=== PATIENT | male | born 1965 | race Caucasian/White ===

== ENCOUNTER 2016-06-16 17:27 | Emergency (ER) | payer OTHER ==
--- NOTE | 2016-06-16 19:30 | EDDOCDS ---
Nurse's Notes [facility] Name: Hong Aburto Age: 51 yrs Sex: Male : 1965 Arrival Date: 06/16/2016 Time: 17:27 Bed I2 / M2 Private MD: NO PRIMARY PHYSICIAN, . Diagnosis: Strain of unspecified muscles, fascia and tendons at thigh level, left thigh;Contusion of left lower leg Presentation: 06/16 17:35 Presenting complaint: Patient states: was snow mobiling and started going to in to a [facility], sled rolled over and tried to save sled from sliding more- legs split apart. upper left thigh pain and pain under scrotum. pt was ambulatory at scene. Adult Sepsis Screening: The patient does not have new or worsening altered mentation. Patient's respiratory rate is less than 22. Systolic blood pressure is greater than 100. Patient has a qSOFA score of 0- Negative Sepsis Screen. Suicide/Homicide risk assessment- the patient denies having any suicidal and/or homicidal ideations and does not present with any other emotional, behavioral or mental health complaints. Status: Patient is not a manager services or dependent. Transition of care: patient was not received from another setting of care. 17:35 Acuity: RENEE Level 3 [facility] 17:35 Method Of Arrival: Ambulance [facility] 17:35 Presenting complaint: Patient states: pt states he cant lift his left leg. pain on srm palpation to upper thigh. Triage Assessment: 17:41 General: Appears in no apparent distress, Behavior is appropriate for age, cooperative. srm Pain: Pain currently is 5 out of 10 on a pain scale. At worst was 10 out of 10 on a pain scale. Musculoskeletal: Reports left thigh/groin pain. cant lift left leg. 17:41 Pt Declines HIV testing. srm Historical: - Allergies: no known allergies; - Home Meds: 1. none - PMHx: none; - PSHx: Hernia repair; - Social history: Smoking status: No barriers to communication noted, The patient speaks fluent Turkish, Speaks appropriately for age, Smoking status: Patient uses tobacco products, current every day smoker. - Family history: Not pertinent. - : The pt / caregiver states he / she is not on anticoagulants. Home medication list is obtained from the patient. - Exposure Risk Screening:: None identified. Screenin:27 Screening information is obtained from the patient. Fall risk: No risks identified. dsf Assistance ADL's: requires no assistance with activities of daily living. Abuse/DV Screen: The patient / caregiver reports he/she is: not in a situation that causes fear, pain or injury. Nutritional screening: No deficits noted. Advance Directives: Currently, there is no health care proxy. home support is adequate. Assessment: 19:27 Adult Sepsis Screening: The patient does not have new or worsening altered mentation. dsf Patient's respiratory rate is less than 22. Systolic blood pressure is greater than 100. Patient has a qSOFA score of 0- Negative Sepsis Screen. General: Appears in no apparent distress, Behavior is appropriate for age, cooperative. Pain: Location: left quadriceps Pain currently is 5 out of 10 on a pain scale. Neurological: Level of Consciousness is awake, alert. Cardiovascular: Capillary refill < 3 seconds. Respiratory: Airway is patent Respiratory effort is even, unlabored, Respiratory pattern is regular, symmetrical. Derm: Skin is pink, warm & dry. Musculoskeletal: Circulation, motion, and sensation intact. Vital Signs: 17:30 BP 147 / 83; Pulse 78; Resp 18 S; Temp 97.8(O); Pulse Ox 97% on R/A; Weight 108.86 kg gr2 (R); Height 6 ft. 0 in. (182.88 cm) (R); Pain 8/10; 19:26 BP 158 / 74; Pulse 98; Resp 18; Temp 98.3(O); Pulse Ox 97% on R/A; Pain 5/10; rn1 17:30 Body Mass Index 32.55 (108.86 kg, 182.88 cm) gr2 Vitals: 17:30 Log In Time: June 16, 2016 at 17:30. gr2 ED Course: 17:29 Patient visited by Beatrice Yarbrough. gr2 17:29 NO PRIMARY PHYSICIAN, . is Private Physician. gr2 17:29 Patient moved to Waiting gr2 17:33 Patient visited by Beatrice Yarbrough. gr2 17:33 Patient moved to Pre RCE gr2 17:38 Triage Initiated srm 18:34 Patient moved to Triage 2 srm 18:35 Jass Martinez [facility] ar2 18:36 Andie Peralta MD is Attending Physician. ar2 18:36 Patient visited by Jass Martinez PA-C. ar2 18:38 Patient moved to I2 / M2 [facility] 19:27 The patient / caregiver is instructed regarding the plan of care and ED course. dsf 19:27 No IV's were initiated during this patient's visit. No procedures done that require dsf assistance. Petar wrap to left thigh. +CSM Crutch training done. Order Results: There are currently no results for this order. Outcome: 18:54 Discharge ordered by Provider. ar2 19:29 Discharge Assessment: Patient awake, alert and oriented x 3. No cognitive and/or dsf functional deficits noted. Patient verbalized understanding of disposition instructions. patient administered narcotics - no. The following High Risk Discharge criteria are identified: None. Discharged to home with crutches. Condition: stable. Discharge instructions given to patient, Instructed on discharge instructions, follow up and referral plans. medication usage, Rest, Ice, Compression and Elevation. crutch walking, Demonstrated understanding of instructions, crutch walking, medications, Pt was receptive of discharge instructions/ teaching. Prescriptions given X 1. No special radiology studies were completed. Property sent home with patient. 19:29 Patient left the ED. dsf Signatures: Alena Gonzales, CANDE RN [facility] Jass Martinez PA-C PA-C ar2 Fátima Bello RN RN dsf Beatrice Yarbrough gr2 [facility]enio Kim [facility]1 [facility]
--- NOTE | 2016-06-16 19:30 | EDDOCDS ---
Physician Documentation [facility] Name: Hong Aburto Age: 51 yrs Sex: Male : 1965 Arrival Date: 06/16/2016 Time: 17:27 Bed I2 / M2 Private MD: NO PRIMARY PHYSICIAN, . Disposition: 06/16/16 18:54 Discharged to Home/Self Care. Impression: Strain of unspecified muscles, fascia and tendons at thigh level, left thigh, Contusion of left lower leg. - Condition is Stable. - Discharge Instructions: Contusion, Muscle Strain, Crutch Use, [id number]. - Prescriptions for Naprosyn 500 mg Oral Tablet - take 1 tablet by ORAL route 2 times per day take with food; 30 tablet. - Medication Reconciliation, Local Pharmacy Hours form. - Follow up: Private Physician; When: Call to arrange an appointment; Reason: Recheck today's complaints. - Problem is new. - Symptoms are unchanged. - Notes: recommend follow up with physician upon returning home. use crutches as needed. weight bearing/activity as tolerated. use petar wrap as needed. ice routinely for next 24-48 hrs.seek immediate medical attention if you develop severe pain/swelling the the leg, especially if you develop loss of feeling in the leg Historical: - Allergies: no known allergies; - Home Meds: 1. none - PMHx: none; - PSHx: Hernia repair; - Social history: Smoking status: No barriers to communication noted, The patient speaks fluent Sinhala, Speaks appropriately for age, Smoking status: Patient uses tobacco products, current every day smoker. - Family history: Not pertinent. - : The pt / caregiver states he / she is not on anticoagulants. Home medication list is obtained from the patient. - Exposure Risk Screening:: None identified. Vital Signs: 06/16 17:30 BP 147 / 83; Pulse 78; Resp 18 S; Temp 97.8(O); Pulse Ox 97% on R/A; Weight 108.86 kg / gr2 240 lbs (R); Height 6 ft. 0 in. (182.88 cm) (R); Pain 8/10; 19:26 BP 158 / 74; Pulse 98; Resp 18; Temp 98.3(O); Pulse Ox 97% on R/A; Pain 5/10; rn1 17:30 Body Mass Index 32.55 (108.86 kg, 182.88 cm) gr2 MDM: 17:47 Hip, (AP/Lat) Ordered. EDMS 17:47 Pelvis Ordered. EDMS 17:47 Femur Ordered. EDMS 18:38 Undress patient appropriately for examination ordered. ar2 18:55 Petar Wrap ordered. ar2 18:55 Crutches ordered. ar2 Signatures: Dispatcher [employer] EDMS Alena Gonzales, Jass Bolton RN, PA-C PA-C ar2 Fátima Bello RN RN dsf MTDD
--- NOTE | 2016-06-18 20:30 | EDDOCDS ---
Nurse's Notes [facility] Name: Hong Aburto Age: 51 yrs Sex: Male : 1965 Arrival Date: 06/16/2016 Time: 17:27 Bed I2 / M2 Private MD: NO PRIMARY PHYSICIAN, . Diagnosis: Strain of unspecified muscles, fascia and tendons at thigh level, left thigh;Contusion of left lower leg Presentation: 06/16 17:35 Presenting complaint: Patient states: was snow mobiling and started going to in to a [facility], sled rolled over and tried to save sled from sliding more- legs split apart. upper left thigh pain and pain under scrotum. pt was ambulatory at scene. Adult Sepsis Screening: The patient does not have new or worsening altered mentation. Patient's respiratory rate is less than 22. Systolic blood pressure is greater than 100. Patient has a qSOFA score of 0- Negative Sepsis Screen. Suicide/Homicide risk assessment- the patient denies having any suicidal and/or homicidal ideations and does not present with any other emotional, behavioral or mental health complaints. Status: Patient is not a hvac services professional or dependent. Transition of care: patient was not received from another setting of care. 17:35 Acuity: RENEE Level 3 [facility] 17:35 Method Of Arrival: Ambulance [facility] 17:35 Presenting complaint: Patient states: pt states he cant lift his left leg. pain on srm palpation to upper thigh. Triage Assessment: 17:41 General: Appears in no apparent distress, Behavior is appropriate for age, cooperative. srm Pain: Pain currently is 5 out of 10 on a pain scale. At worst was 10 out of 10 on a pain scale. Musculoskeletal: Reports left thigh/groin pain. cant lift left leg. 17:41 Pt Declines HIV testing. srm Historical: - Allergies: no known allergies; - Home Meds: 1. none - PMHx: none; - PSHx: Hernia repair; - Social history: Smoking status: No barriers to communication noted, The patient speaks fluent Polish, Speaks appropriately for age, Smoking status: Patient uses tobacco products, current every day smoker. - Family history: Not pertinent. - : The pt / caregiver states he / she is not on anticoagulants. Home medication list is obtained from the patient. - Exposure Risk Screening:: None identified. Screenin:27 Screening information is obtained from the patient. Fall risk: No risks identified. dsf Assistance ADL's: requires no assistance with activities of daily living. Abuse/DV Screen: The patient / caregiver reports he/she is: not in a situation that causes fear, pain or injury. Nutritional screening: No deficits noted. Advance Directives: Currently, there is no health care proxy. home support is adequate. Assessment: 19:27 Adult Sepsis Screening: The patient does not have new or worsening altered mentation. dsf Patient's respiratory rate is less than 22. Systolic blood pressure is greater than 100. Patient has a qSOFA score of 0- Negative Sepsis Screen. General: Appears in no apparent distress, Behavior is appropriate for age, cooperative. Pain: Location: left quadriceps Pain currently is 5 out of 10 on a pain scale. Neurological: Level of Consciousness is awake, alert. Cardiovascular: Capillary refill < 3 seconds. Respiratory: Airway is patent Respiratory effort is even, unlabored, Respiratory pattern is regular, symmetrical. Derm: Skin is pink, warm & dry. Musculoskeletal: Circulation, motion, and sensation intact. Vital Signs: 17:30 BP 147 / 83; Pulse 78; Resp 18 S; Temp 97.8(O); Pulse Ox 97% on R/A; Weight 108.86 kg gr2 (R); Height 6 ft. 0 in. (182.88 cm) (R); Pain 8/10; 19:26 BP 158 / 74; Pulse 98; Resp 18; Temp 98.3(O); Pulse Ox 97% on R/A; Pain 5/10; rn1 17:30 Body Mass Index 32.55 (108.86 kg, 182.88 cm) gr2 Vitals: 17:30 Log In Time: June 16, 2016 at 17:30. gr2 ED Course: 17:29 Patient visited by Beatrice Yarbrough. gr2 17:29 NO PRIMARY PHYSICIAN, . is Private Physician. gr2 17:29 Patient moved to Waiting gr2 17:33 Patient visited by Beatrice Yarbrough. gr2 17:33 Patient moved to Pre RCE gr2 17:38 Triage Initiated srm 18:34 Patient moved to Triage 2 srm 18:35 [facility]. ar2 18:36 Andie Peralta MD is Attending Physician. ar2 18:36 Patient visited by Jass Martinez PA-C. ar2 18:38 Patient moved to I2 / M2 [facility] 19:27 The patient / caregiver is instructed regarding the plan of care and ED course. dsf 19:27 No IV's were initiated during this patient's visit. No procedures done that require dsf assistance. Petar wrap to left thigh. +CSM Crutch training done. 19:37 Patient name changed from Hong\S\L\S\[place]\S\ to Hong\S\[place]\S\[place]. EDMS 19:42 [facility] Payment Agreement was scanned into [employer] and attached to record. [facility] 21:46 T-Sheet-- Draft Copy was scanned into [employer] and attached to record. yelena 02 08:11 PCR was scanned into [employer] and attached to record. mt4 Order Results: There are currently no results for this order. Outcome: 06/16 18:54 Discharge ordered by Provider. ar2 19:29 Discharge Assessment: Patient awake, alert and oriented x 3. No cognitive and/or dsf functional deficits noted. Patient verbalized understanding of disposition instructions. patient administered narcotics - no. The following High Risk Discharge criteria are identified: None. Discharged to home with crutches. Condition: stable. Discharge instructions given to patient, Instructed on discharge instructions, follow up and referral plans. medication usage, Rest, Ice, Compression and Elevation. crutch walking, Demonstrated understanding of instructions, crutch walking, medications, Pt was receptive of discharge instructions/ teaching. Prescriptions given X 1. No special radiology studies were completed. Property sent home with patient. 19:29 Patient left the ED. dsf Signatures: [facility] Alena Gonzales, RN RN [facility] Jass Martinez PA-C PA-C ar2 Angelia Richards mt4 Fátima Bello RN RN dsf Beatrice Yarbrough Sandra Eugenio Franco rn1 Tamela Bar Chart Complete MTDD
--- NOTE | 2016-06-18 20:30 | EDDOCDS ---
Physician Documentation [facility] Name: Hong Aburto Age: 51 yrs Sex: Male : 1965 Arrival Date: 06/16/2016 Time: 17:27 Bed I2 / M2 Private MD: NO PRIMARY PHYSICIAN, . Disposition: 06/16/16 18:54 Discharged to Home/Self Care. Impression: Strain of unspecified muscles, fascia and tendons at thigh level, left thigh, Contusion of left lower leg. - Condition is Stable. - Discharge Instructions: Contusion, Muscle Strain, Crutch Use, [id number]. - Prescriptions for Naprosyn 500 mg Oral Tablet - take 1 tablet by ORAL route 2 times per day take with food; 30 tablet. - Medication Reconciliation, Local Pharmacy Hours form. - Follow up: Private Physician; When: Call to arrange an appointment; Reason: Recheck today's complaints. - Problem is new. - Symptoms are unchanged. - Notes: recommend follow up with physician upon returning home. use crutches as needed. weight bearing/activity as tolerated. use petar wrap as needed. ice routinely for next 24-48 hrs.seek immediate medical attention if you develop severe pain/swelling the the leg, especially if you develop loss of feeling in the leg Historical: - Allergies: no known allergies; - Home Meds: 1. none - PMHx: none; - PSHx: Hernia repair; - Social history: Smoking status: No barriers to communication noted, The patient speaks fluent Albanian, Speaks appropriately for age, Smoking status: Patient uses tobacco products, current every day smoker. - Family history: Not pertinent. - : The pt / caregiver states he / she is not on anticoagulants. Home medication list is obtained from the patient. - Exposure Risk Screening:: None identified. Vital Signs: 06/16 17:30 BP 147 / 83; Pulse 78; Resp 18 S; Temp 97.8(O); Pulse Ox 97% on R/A; Weight 108.86 kg / gr2 240 lbs (R); Height 6 ft. 0 in. (182.88 cm) (R); Pain 8/10; 19:26 BP 158 / 74; Pulse 98; Resp 18; Temp 98.3(O); Pulse Ox 97% on R/A; Pain 5/10; rn1 17:30 Body Mass Index 32.55 (108.86 kg, 182.88 cm) gr2 MDM: 17:47 Hip, (AP/Lat) Ordered. EDMS 17:47 Pelvis Ordered. EDMS 17:47 Femur Ordered. EDMS 18:38 Undress patient appropriately for examination ordered. ar2 18:55 Petar Wrap ordered. ar2 18:55 Crutches ordered. ar2 19:42 [facility] Payment Agreement was scanned into [employer] and attached to record. [facility] 19:42 Financial registration complete. [facility] 21:46 T-Sheet-- Draft Copy was scanned into [employer] and attached to record. klr 06/17 08:11 PCR was scanned into [employer] and attached to record. mt4 Signatures: Dispatcher [employer] Alena Corbin RN RN srm Robertshaw, Aaron, PA-C PA-Jennifer ar2 Angelia Richards mt4 Fátima Bello RN RN dsf [place], Sandra [facility] Tamela Bar The chart was reviewed and I authenticate all verbal orders and agree with the evaluation and treatment provided.Attachments: 06/16 19:42 [facility] Payment Agreement [facility] 21:46 T-Sheet-- Draft Copy kl Chart Complete MTDD
--- NOTE | 2016-06-18 20:30 | EDDOCDS ---
Physician Documentation [facility] Name: Hong Aburto Age: 51 yrs Sex: Male : 1965 Arrival Date: 06/16/2016 Time: 17:27 Bed I2 / M2 Private MD: NO PRIMARY PHYSICIAN, . Disposition: 06/16/16 18:54 Discharged to Home/Self Care. Impression: Strain of unspecified muscles, fascia and tendons at thigh level, left thigh, Contusion of left lower leg. - Condition is Stable. - Discharge Instructions: Contusion, Muscle Strain, Crutch Use, [id number]. - Prescriptions for Naprosyn 500 mg Oral Tablet - take 1 tablet by ORAL route 2 times per day take with food; 30 tablet. - Medication Reconciliation, Local Pharmacy Hours form. - Follow up: Private Physician; When: Call to arrange an appointment; Reason: Recheck today's complaints. - Problem is new. - Symptoms are unchanged. - Notes: recommend follow up with physician upon returning home. use crutches as needed. weight bearing/activity as tolerated. use petar wrap as needed. ice routinely for next 24-48 hrs.seek immediate medical attention if you develop severe pain/swelling the the leg, especially if you develop loss of feeling in the leg Historical: - Allergies: no known allergies; - Home Meds: 1. none - PMHx: none; - PSHx: Hernia repair; - Social history: Smoking status: No barriers to communication noted, The patient speaks fluent Ukrainian, Speaks appropriately for age, Smoking status: Patient uses tobacco products, current every day smoker. - Family history: Not pertinent. - : The pt / caregiver states he / she is not on anticoagulants. Home medication list is obtained from the patient. - Exposure Risk Screening:: None identified. Vital Signs: 06/16 17:30 BP 147 / 83; Pulse 78; Resp 18 S; Temp 97.8(O); Pulse Ox 97% on R/A; Weight 108.86 kg / gr2 240 lbs (R); Height 6 ft. 0 in. (182.88 cm) (R); Pain 8/10; 19:26 BP 158 / 74; Pulse 98; Resp 18; Temp 98.3(O); Pulse Ox 97% on R/A; Pain 5/10; rn1 17:30 Body Mass Index 32.55 (108.86 kg, 182.88 cm) gr2 MDM: 17:47 Hip, (AP/Lat) Ordered. EDMS 17:47 Pelvis Ordered. EDMS 17:47 Femur Ordered. EDMS 18:38 Undress patient appropriately for examination ordered. ar2 18:55 Petar Wrap ordered. ar2 18:55 Crutches ordered. ar2 19:42 [facility] Payment Agreement was scanned into [employer] and attached to record. [facility] 19:42 Financial registration complete. [facility] 21:46 T-Sheet-- Draft Copy was scanned into [employer] and attached to record. klr 06/17 08:11 PCR was scanned into [employer] and attached to record. mt4 Signatures: Dispatcher [employer] Alena Corbin RN RN srm Robertshaw, Aaron, PA-C PA-Jennifer ar2 Angelia Richards mt4 Fátima Bello RN RN dsf [place], Sandra [facility] Tamela Bar The chart was reviewed and I authenticate all verbal orders and agree with the evaluation and treatment provided.Attachments: 06/16 19:42 [facility] Payment Agreement [facility] 21:46 T-Sheet-- Draft Copy kl Chart Complete MTDD
--- NOTE | 2016-06-20 13:21 | REP ---
Clinical: Trauma. Technique: Neutral and frog lateral views. Findings: Two views of the left hip demonstrates no acute fracture or dislocation. Joint spaces normal. Impression: No acute fracture dislocation. Signed by Addison Mckeon MD 06/20/2016 01:12 P
--- NOTE | 2016-06-20 13:22 | REP ---
Clinical: Trauma. Technique: Single AP view of the pelvis. Findings: Frontal view of the pelvis demonstrates symmetric age-related degenerative changes. Calcified loose body in relation to the left hip in the same plane as the femoral head/neck is appreciated. No acute fracture dislocation. Impression: Degenerative changes. No acute fracture or dislocation. Signed by Addison Mckeon MD 06/20/2016 01:14 P
--- NOTE | 2016-06-20 13:24 | REP ---
Clinical: Trauma. Technique: Neutral and frog lateral views of the left femur. Findings: Degenerative changes at the knee include spurring/early osteophyte formation and joint space narrowing involving the tibiofemoral and patellofemoral joint noted. No acute fracture dislocation. Impression: No acute fracture or dislocation. Mild tricompartmental degenerative changes at the knee. Signed by Addison Mckeon MD 06/20/2016 01:15 P
== END 2016-06-16 19:29 | disposition home or self-care (01) ==
LOC: M ED 17:27
DX: S80.12XA Contusion of left lower leg, initial encounter (principal); S76.112A Strain of left quadriceps muscle, fascia and tendon, initial encounter; V86.02XA Driver of snowmobile injured in traffic accident, initial encounter; Y92.89 Other specified places as the place of occurrence of the external cause; F17.200 Nicotine dependence, unspecified, uncomplicated